=== PATIENT | male | born 1990 | race Caucasian/White ===

== ENCOUNTER 2021-03-01 16:25 | Emergency (ER) | payer OTHER ==
[~2021-03-01] VITALS: Ht 190.5 cm; Wt 72.8 kg
[2021-03-01 17:37] VITALS: BP 116/72
== END 2021-03-01 18:13 | disposition home or self-care (01) ==
LOC: EMS 16:30
DX: F32.A Depression, unspecified (principal)
CPT/HCPCS: 99285; Z7502